=== PATIENT | female | born 1975 | race Caucasian/White ===

== ENCOUNTER 2016-10-16 10:05 | Emergency (ER) | payer OTHER ==
--- NOTE | 2016-10-16 12:16 | ED GENERAL ADULT ---
History of Present Illness General Chief Complaint: Abdominal Pain/Flank Pain Stated Complaint: ABD PAIN VOMITING SINCE Source: patient Exam Limitations: no limitations Vital Signs & Intake/Output Vital Signs & Intake/Output Vital Signs Date Time Temp Pulse Resp B/P B/P Pulse O2 O2 Flow FiO2 Mean Ox Delivery Rate 10/16 1333 98.4 80 18 158/91 100 Room Air 10/16 1053 99 Room Air 10/16 1017 98.2 70 18 143/85 99 Room Air Allergies Coded Allergies: amoxicillin (Severe, RASH, HIVES, +N 09/05/15) Reconcile Medications No Known Home Medications Triage Note: PT C/O LT UPPER ABD PAIN. HAS BEEN USING TUMS AND MYLANTA WITH NO RELIEF. PAIN RADIATES TO HER BACK AND IS HAVING VOMITING. STATES PAIN IS A BURNING PAIN. Triage Nurses Notes Reviewed? yes : No Patient currently breastfeeds: No HPI: 40 y/o female with h/o asthma and GERD presenting with burning epigastric pain radiating to the back for 3 days. Worse with eating. Takes prilosec and mylanta which she reports med compliance with. Endorses N/V, with last emesis at 3 am this morning. Reports loose stools, but no diarrhea, melena, or bloody stools. Denies fevers. Denies ETOH use, smoking, spicy foods, or NSAID use. Past History Travel History Traveled to [place] past 21 day No Medical History Any Pertinent Medical History? see below for history Neurological: NONE EENT: NONE Cardiovascular: NONE Respiratory: asthma Gastrointestinal: NONE Hepatic: NONE Renal: NONE Musculoskeletal: NONE Psychiatric: NONE Endocrine: NONE Blood Disorders: NONE Cancer(s): NONE CONSERVATION SCIENTIST/Reproductive: NONE Surgical History Surgical History: tubal ligation Psychosocial History What is your primary language Persian Tobacco Use: Never used Family History Hx Contributory? No Review of Systems Review of Systems Constitutional: Reports: no symptoms. Respiratory: Reports: no symptoms. Cardiovascular: Reports: no symptoms. GI: Reports: abdominal pain, nausea, vomiting. Denies: constipation, diarrhea, distention, bloody stool. Genitourinary: Reports: no symptoms. Musculoskeletal: Reports: no symptoms. Skin: Reports: no symptoms. Neurological/Psychological: Reports: no symptoms. Physical Exam Physical Exam General Appearance: well developed/nourished, no apparent distress, alert, awake , comfortable Head: atraumatic Respiratory: normal breath sounds, lungs clear Cardiovascular: regular rate/rhythm Gastrointestinal: normal bowel sounds, soft, abdomen is tender to palpation in the epigastrium and right upper quadrant, negative Alaniz sign, no rebound or guarding Neurologic/Psych: awake, alert, oriented x 3, normal mood/affect Core Measures ACS in differential dx? No CVA/TIA Diagnosis: No Severe Sepsis Present: No Septic Shock Present: No Progress Differential Diagnoses I considered the following diagnoses in my evaluation of the patient: [ Cholecystitis versus cholelithiasis versus choledocholithiasis versus cholangitis versus pancreatitis versus gastritis versus peptic ulcer disease] Plan of Care: Orders Procedure Date/time Status LIPASE 10/16 1215 Complete COMPREHENSIVE METABOLIC PANEL 10/16 1215 Complete CBC WITHOUT DIFFERENTIAL 10/16 1215 Complete EKG 10/16 1040 Active Laboratory Tests 10/16/16 1242: Anion Gap 11, Estimated GFR > 60, BUN/Creatinine Ratio 13.8, Glucose 82, Calcium 9.3, Total Bilirubin 2.7 H, AST 276 H, ALT 185 H, Alkaline Phosphatase 173 H , Total Protein 7.7, Albumin 4.2, Globulin 3.5, Albumin/Globulin Ratio 1.2, Lipase 81, CBC w Diff NO MAN DIFF REQ, RBC 4.79, MCV 87.0, MCH 28.3, RDW 13.2, MPV 9.8, Gran % 73.5, Lymphocytes % 16.5 L, Monocytes % 6.7, Eosinophils % 2.9, Basophils % 0.4, Absolute Granulocytes 6.0, Absolute Lymphocytes 1.4, Absolute Monocytes 0.6, Absolute Eosinophils 0.2, Absolute Basophils 0, PUBS MCHC 32.6 L White blood cell count within normal limits. Alkaline phosphatase, bilirubin, chains and the nieces elevated, suspect cholelithiasis but low concern for cholecystitis as patient has been afebrile with normal white count. Right upper quadrant ultrasound is pending, patient requesting to be discharged as she has her son's graduation alliance party at 2:30. Spoke with attending and will allow patient to leave and call her with the ultrasound results as she has been afebrile with normal white count and nontoxic appearing. 3:00pm Patient called with ultrasound results and informed that ultrasound does show multiple gallstones with cholecystitis. Instructed that she needs to return to the ED immediately for surgical evaluation. Patient instructed to remain nothing by mouth from here on forward. (ANIRUDH SETH,DALE) Initial ED EKG: none Departure Departure Disposition: HOME OR SELF CARE Condition: Stable Clinical Impression Primary Impression: RUQ pain Secondary Impressions: Epigastric pain Referrals: ADDISON MARS,DIAZ Hawk (PCP/Family) Additional Instructions: He will receive a phone call later on today with the results of your ultrasound. He understands that if he were ultrasound shows any emergent process that he will need to come back to the emergency department immediately for evaluation. Please follow-up with your primary care provider in the next 24 hours for reevaluation. Return to the ED sooner for any worsening symptoms. Departure Forms: Customer Survey General Discharge Information Prescriptions: Current Visit Scripts No Known Home Medications Critical Care Note Critical Care Note Critical Care Time: non-applicable
[2016-10-16 13:01] LABS: ABSOLUTE BASOPHIL COUNT 0 /CUMM (0.0-0.2); ABSOLUTE EOSINOPHIL COUNT 0.2 /CUMM (0.0-0.7); ABSOLUTE LYMPH COUNT 1.4 /CUMM (1.2-3.4); ABSOLUTE MONOCYTE COUNT 0.6 /CUMM (0.10-0.60); BASOPHIL % 0.4 % (0.0-2.0); EOSINOPHIL % 2.9 % (0-5); GRANULOCYTE % 73.5 % (42.2-75.2); HEMATOCRIT 41.7 % (37-47); MEAN CORPUSCULAR HGB 28.3 PG (27.0-31.0); MEAN CORPUSCULAR HGB CONC 32.6 G/DL (33.0-37.0); MEAN PLATELET VOLUME 9.8 FL (7.4-10.4); PLATELET COUNT 301 /CUMM (130-400); RBC DISTRIBUTION WIDTH 13.2 % (11.5-14.5); RED BLOOD CELL CT 4.79 /CUMM (4.20-5.40); WHITE BLOOD CELL COUNT 8.2 /CUMM (4.8-10.8)
[2016-10-16 13:33] VITALS: BP 158/91
--- NOTE | 2016-10-16 13:43 | ULTRASOUND REPORT ---
EXAMINATION: US ABDOMEN LIMITED CLINICAL INFORMATION: Right upper quadrant pain. Presumptive diagnosis of cholecystitis. COMPARISON: None TECHNIQUE: Real-time imaging of the right upper quadrant abdominal viscera. FINDINGS: PANCREAS: Normal. LIVER: Normal. The liver demonstrates normal size, contour and echogenicity. No focal lesion or intrahepatic biliary duct dilatation. GALLBLADDER: There are multiple echogenic shadowing foci seen within the gallbladder, consistent with gallstones. Mild gallbladder wall thickening is seen, measuring up to 0.4 cm in thickness. No pericholecystic fluid is seen. No sonographic Alaniz sign is elicited while scanning over the gallbladder. COMMON BILE DUCT: Normal in caliber measuring 0.3 cm in diameter. RIGHT KIDNEY: Normal. No hydronephrosis. No renal calculi or focal parenchymal lesions. The kidney measures 9.8 cm in maximum dimension. FREE FLUID: None. IMPRESSION: 1. Multiple calcified gallstones with diffuse gallbladder wall thickening. In the clinical setting provided, findings are suspicious for acute cholecystitis. 2. No evidence of biliary obstruction. 3. Otherwise unremarkable right upper quadrant ultrasound.
[2016-10-16] MEDS ORDERED: SEASONIQUE 0.11 EACH PO (20:49)
[2016-10-17] MEDS ORDERED: PERCOCET 5-3251 EACH PO (00:52)
== END 2016-10-16 13:54 ==
LOC: ERH 10:05
PROVIDERS: Physician Assistant
DX: R10.11 Right upper quadrant pain (principal); R10.13 Epigastric pain
CPT/HCPCS: 93005; 93010

== ENCOUNTER 2016-10-16 19:04 | Observation (INO) | payer OTHER ==
[~2016-10-16] VITALS: Ht 160 cm; Wt 76.2 kg
--- NOTE | 2016-10-16 19:11 | NUR ---
PER PT SEEN EARLIER FOR GALL BLADDER TOLD TO COME BACK./ HAD LABS AND SURG CONSULT
--- NOTE | 2016-10-16 19:31 | ED GI/GU/ABDOMINAL COMPLAINT ---
History of Present Illness General Chief Complaint: Abdominal Pain/Flank Pain Stated Complaint: ABD PAIN SEEN TODAY Source: patient, old records Exam Limitations: no limitations Vital Signs & Intake/Output Vital Signs & Intake/Output Vital Signs Date Time Temp Pulse Resp B/P B/P Pulse O2 O2 Flow FiO2 Mean Ox Delivery Rate 10/16 2105 97.3 60 16 154/80 100 Room Air 10/16 2054 96 10/16 1913 98.1 76 20 125/87 98 ED Intake and Output 10/17 0000 10/16 1200 Intake Total 1100 Output Total Balance 1100 Intake, IV 1100 Patient 168 lb Weight Allergies Coded Allergies: amoxicillin (Severe, RASH, HIVES, +N 09/05/15) apple (ITCHY MOUTH 10/16/16) banana (ITCHY MOUTH 10/16/16) kiwi (ITCHY MOUTH 10/16/16) Reconcile Medications L-Norgest/E.estradion-E.estrad (Seasonique 0.15-0.03-0.01 Tab) 0.15 MG-30 MCG ( 84)/10 MCG (7) TBDSPK.3MO 1 TAB PO DAILY CONTROL (Reported) Oxycodone HCl/Acetaminophen (Percocet 5-325 MG Tablet) 5 MG-325 MG TABLET 1-2 TAB PO Q4-6 PRN PAIN Triage Note: PER PT SEEN EARLIER FOR GALL BLADDER TOLD TO COME BACK.08/09 HAD LABS AND SURG CONSULT Triage Nurses Notes Reviewed? yes LMP (ages 10-50): unknown ? N Is pt currently ? No Onset: Abrupt Duration: day(s): (3), constant, continues in ED, getting worse Timing: single episode today Quality/Severity: burning, moderate, sharpness Severity Numbers: 7 Location: epigastric Radiation: back Activities at Onset: none Prior Abdominal Problems: none Past Sexual History: Unobtainable at this time Sexually Active: Yes No Modifying Factors: none Modifying Factors: Worsens With: eating, movement, palpation. Associated Symptoms: abdominal pain, heartburn, nausea/vomiting HPI: 40-year-old female with history of asthma presents for evaluation after being seen earlier and found to have cholelithiasis suspicions for acute cholecystitis. Patient seen in ED earlier today and was initially discharged home before ultrasound results were back because she wanted to go to a graduation constitution party. Patient was called and told to return to emergency department after ultrasound showed signs of possible acute cholecystitis. Patient when she 's been having epigastric abdominal pain and radiates to her back for the past 3 days. He reports symptoms feel like heartburn but has not been improving with antacids. Pain is worse with eating and touching the affected areas. Pain is currently a 7 out of 10. There are no alleviating factors. She is had previous C-sections and tummy tuck but no other abdominal surgeries. No other associated symptoms. (TANA REED PA-C) Past History Travel History Traveled to [place] past 21 day No Medical History Any Pertinent Medical History? see below for history Neurological: NONE EENT: NONE Cardiovascular: NONE Respiratory: asthma Gastrointestinal: NONE Hepatic: NONE Renal: NONE Musculoskeletal: NONE Psychiatric: NONE Endocrine: NONE Blood Disorders: NONE Cancer(s): NONE CLIENT MANAGER LARGE LAW/Reproductive: NONE Surgical History Surgical History: tubal ligation Psychosocial History What is your primary language [place] Tobacco Use: Never used Family History Hx Contributory? No (TANA REED PA-C) Review of Systems Review of Systems Constitutional: Reports: no symptoms. EENTM: Reports: no symptoms. Respiratory: Reports: no symptoms. Cardiovascular: Reports: no symptoms. GI: Reports: see HPI, abdominal pain, nausea. Genitourinary: Reports: no symptoms. Musculoskeletal: Reports: no symptoms. Skin: Reports: no symptoms. Neurological/Psychological: Reports: no symptoms. Hematologic/Endocrine: Reports: no symptoms. Immunologic/Allergic: Reports: no symptoms. All Other Systems: Reviewed and Negative (TANA REED PA-C) Physical Exam Physical Exam General Appearance: well developed/nourished, no apparent distress, alert, awake , mild distress Head: atraumatic, normal appearance Eyes: Bilateral: normal appearance, PERRL, EOMI, normal inspection. Ears, Nose, Throat, Mouth: hearing grossly normal Neck: normal inspection, supple, full range of motion Respiratory: normal breath sounds, chest non-tender, no respiratory distress Cardiovascular: regular rate/rhythm, normal peripheral pulses Peripheral Pulses: 2+ dorsalis pedis (R), 2+ dorsalis pedis (L) Gastrointestinal: normal bowel sounds, soft, no organomegaly, tenderness ( epigastric) Back: normal inspection, normal range of motion, no vertebral tenderness Extremities: normal range of motion Neurologic/Psych: no motor/sensory deficits, awake, alert, oriented x 3, normal gait Skin: intact, normal color, warm/dry Core Measures ACS in differential dx? No Severe Sepsis Present: No Septic Shock Present: No (BRIANNA SETH,TANA) Progress Differential Diagnosis: appendicitis, biliary colic, bowel obstruction, cholecystitis, diverticulitis, ectopic , gastritis, pancreatitis, peptic ulcer, PUD/GERD, SBO, UTI/pyelo Plan of Care: Orders Procedure Date/time Status Regular Diet 10/17 B Active HEPATIC FUNCTION PANEL 10/17 599 Active CBC WITHOUT DIFFERENTIAL 10/17 599 Active BASIC ELECTROLYTES PLUS BUN&CR 10/17 599 Active PATHOLOGY SPECIMEN 10/17 0108 Active Pathway - chart 10/[address] in observation 10/18 47 Active Patient Data 10/18 47 Active Code Status 10/17 004 Active Wound Care/Dressing 10/17 UNK Active VTE Mechanical Prophylaxis 10/17 UNK Active Vital Signs 10/17 UNK Active Intake & Output 10/17 UNK Active Activity/Ambulation 10/17 UNK Active Add-on Test (ER Only) 10/16 2113 Active FingerStick- Glucose 10/17 2107 Active Add-on Test (ER Only) 10/16 2032 Active HUMAN BETA HCG SCREEN 10/17 2023 Complete PARTIAL THROMBOPLASTIN TIME 10/16 2022 Complete PROTHROMBIN TIME 10/16 2022 Complete TYPE & SCREEN (NOT X-MATCH) 10/16 2019 Complete Current Medications Sig/Royal Start time Last Medication Dose Stop Time Status Admin Heparin Sodium 5,000 UNIT Q8 10/17 06 AC (Porcine) Acetaminophen 650 MG Q6P PRN 10/175 AC (Tylenol) Dextrose/Sodium 1,000 ML .[id number] 10/17 0045 AC 10/17 Chloride 0100 (D5W-1/2 Normal Saline 1000ML) Morphine Sulfate 2 MG Q2P PRN 10/17 0045 AC 10/17 (Morphine) 0107 Morphine Sulfate 4 MG Q2P PRN 10/17 004 AC (Morphine) Ondansetron HCl 4 MG Q6P PRN 10/17 004 AC (Zofran) Oxycodone/ 1 TAB Q4P PRN 10/17 004 AC Acetaminophen (Percocet) Oxycodone/ 2 TAB Q4P PRN 10/17 44 AC Acetaminophen (Percocet) Promethazine HCl 12.5 MG Q6P PRN 10/17 0045 AC (Phenergen) 10/24 0044 Metronidazole 500 MG ONCE ONE 10/16 2099 CAN (Flagyl) 10/16 2158 N/A 1 UNIT (No Carrier) Laboratory Tests 10/16/162032: PT Cancelled, INR Cancelled, APTT Cancelled 10/16/162023: Total Beta HCG NEGATIVE 10/16/162022: PT 11.4, INR 1.09, APTT 30 Patient seen and evaluated. She was given IV Tylenol and a liter of IV fluids. Surgery was paged at 8 PM. Waiting to hear back from surgeon with the plan will be 8:24 PM: Spoke with Dr. Travis regarding the situation. Based on patient's blood work and the ultrasound he does not feel as though emergent surgery is necessary. He said that if the patient wants to stay for surgery tonight that he will do tonight or patient follow-up as an outpatient have surgery done over the next 3 days. Discussed situation with patient and she is electing to stay for surgery tonight. PT/INR and PTT ordered. Surgical PA paged. Patient was also given a DuoNeb due to reported wheezing. Lungs are clear bilaterally before and after DuoNeb. Patient taken to the OR from the emergency department. (TANA REED PA-C) Initial ED EKG: none (TANA REED PA-C) Departure Departure Disposition: STILL A PATIENT Condition: Stable Clinical Impression Primary Impression: Cholecystitis Referrals: ADDISON MARS,DIAZ Hawk (PCP/Family) Departure Forms: Customer Survey General Discharge Information Prescriptions: Current Visit Scripts Oxycodone HCl/Acetaminophen (Percocet 5-325 MG Tablet) 1-2 TAB PO Q4-6 PRN PAIN #36 TAB OR/GI Note Spoke With: SRIRAM MONTEJO DO ED Treatment Decision: TABITHA MAHMOOD requires urgent operative management or an emergent procedure that cannot be performed in the Emergency Room setting. Patient will go to the OR from the emergency department for a cholecystectomy for treatment of acute cholecystitis and cholelithiasis. Transport To: [facility] (TANA REED PA-C) PA/AGER OPERATOR Co-Sign Statement Statement: ED Attending supervision documentation- x I saw and evaluated the patient. I have also reviewed all the pertinent lab results and diagnostic results. I agree with the findings and the plan of care as documented in the PA's/AGER OPERATOR's documentation. [] I have reviewed the ED Record and agree with the PA's/AGER OPERATOR's documentation. [] Additions or exceptions (if any) to the PAs/AGER OPERATOR's note and plan are summarized below: [] (MATTHEW MARS,MER)
--- NOTE | 2016-10-16 20:31 | NUR ---
PT TO ROOM 4, SEEN BY BASHIR REED. IV EST, IVF AND OFIRMEV INFUSING. TYPE AND SCREEN SENT WITH EXTRA SST/LAV/BLUE/RAYMUNDO. PT AWARE TO REMAIN NPO, LAST PO INTAKE A FEW NOODLES AT 1500. SURGICAL PA AT BEDSIDE.
[2016-10-16 20:49] LABS: PT 11.4 SEC (9.4-12.5); PTT 30 SEC (25-37)
[2016-10-16] MEDS ORDERED: SEASONIQUE 0.11 EACH PO (20:49)
--- NOTE | 2016-10-16 21:08 | NUR ---
NEB TX COMPLETE FOR PT C/O ASTHMA SYMPTOMS. PAIN TOLERABLE, DENIES NAUSEA CURRENTLY. IVF COMPLETE. AWARE OF POC FOR SURGERY; AWARE 1 OTHER PT TO GO FIRST AND THAT PT HAS JUST GONE NOW. PT WILL REMOVE JEWELRY AND GIVE VALUABLES TO HER MOTHER PRIOR TO OR.
--- NOTE | 2016-10-16 21:22 | NUR ---
LAB REQUESTING ABORH TUBE
--- NOTE | 2016-10-16 22:03 | NUR ---
OR NOW CALLED STATING TRANSPORT WILL ARRIVE IN 15MIN. PT TO BATHROOM, CHANGED INTO GOWN AND COMPLETING SCRUB. PT AND MOM AWARE OF POC; MOM TO TAKE BELONGINGS.
--- NOTE | 2016-10-16 22:34 | NUR ---
PT TRANSPORTED TO FLOOR
--- NOTE | 2016-10-16 23:01 | History & Physical Pre-Op ---
General Information and HPI MD Statement: I have seen and personally examined TABITHA MAHMOOD and documented this H&P. The patient is a 40 year old F who presented with a patient stated chief complaint of []. Source of Information: patient Exam Limitations: no limitations History of Present Illness: 40 year old female with abdominal pain for 3 days. Got more severe last night. Was seen in the ED earlier today and was sent home. Was called back d/t US finding of cholelithiasis with possible cholecystitis. Currently patient with some epigastric discomfort but has been afraid to eat. Allergies/Medications Allergies: Coded Allergies: amoxicillin (Severe, RASH, HIVES, +N 09/05/15) apple (ITCHY MOUTH 10/16/16) banana (ITCHY MOUTH 10/16/16) kiwi (ITCHY MOUTH 10/16/16) Home Med list L-Norgest/E.estradion-E.estrad (Seasonique 0.15-0.03-0.01 Tab) 0.15 MG-30 MCG ( 84)/10 MCG (7) TBDSPK.3MO 1 TAB PO DAILY CONTROL (Reported) Past History Medical History Neurological: NONE EENT: NONE Cardiovascular: NONE Respiratory: asthma Gastrointestinal: NONE Hepatic: NONE Renal: NONE Musculoskeletal: NONE Psychiatric: NONE Endocrine: NONE Blood Disorders: NONE Cancer(s): NONE CORPORATE EXECUTIVE/Reproductive: NONE Surgical History Pertinent Surgical History: , tubal ligation, Abdominoplasty Past Family/Social History Psychosocial History Primary Language: Swiss Smoking Status: Never Smoked ETOH Use: occasional use Illicit Drug Use: denies illicit drug use Review of Systems Review of Systems: All negative aside for the above mentioned peritnent positives. Exam & Diagnostic Data Last 24 Hrs of Vital Signs/I&O Vital Signs Date Time Temp Pulse Resp B/P B/P Pulse O2 O2 Flow FiO2 Mean Ox Delivery Rate 10/16 2105 97.3 60 16 154/80 100 Room Air 10/16 2054 96 10/16 1913 98.1 76 20 125/87 98 Physical Exam General Appearance Alert, Oriented X3, No Acute Distress Skin No Significant Lesion Neck Supple, No JVD Cardiovascular Regular Rate, Normal S1, Normal S2 Lungs Clear to Auscultation Abdomen Soft (epigastric tenderness) Neurological Normal Gait, Normal Speech, Cranial Nerves 3-12 NL Extremities No Edema, No Tenderness/Swelling Last 24 Hrs of Labs/Carlos: Laboratory Tests 10/16/162032: PT Cancelled, INR Cancelled, APTT Cancelled 10/16/162023: Total Beta HCG NEGATIVE 10/16/162022: PT 11.4, INR 1.09, APTT 30 Diagnostic Data Other Results Abd US-cholelithiasis with possible cholecystitis Assessment/Plan Assessment/Plan: Acute Cholecystitis -NPO -IVF -Plan for Lap Kamini tonight As Ranked By This Provider Problem List: 1. Epigastric pain 2. RUQ pain Attending MD Review Statement Attending Statement Attending MD Statement: examined this patient, discuss w/resident/PA/CERTIFIED RETINAL ANGIOGRAPHER, agreed w/resident/PA/CERTIFIED RETINAL ANGIOGRAPHER, discussed with family, reviewed EMR data (avail), reviewed images
--- NOTE | 2016-10-17 00:39 | Operative Report ---
Operative/Inv Procedure Report Surgery Date: 10/17/16 Name of Procedure: Laparoscopic Cholecystectomy Pre-Operative Diagnosis: Cholelithiasis/Cholecystitis Post-Operative Diagnosis: Same Estimated Blood Loss: less than 50ml Surgeon/Tipping Machine Operator Automatic: SRIRAM FUNG APRN Anesthesia: general endotracheal tube IV Fluids: 1700 cc Drains: None Specimens: Gallbladder Complications: None Condition: Stable Operative Indication: This is a 40-year-old female that presented to the emergency room with abdominal pain. After appropriate workup was completed the patient was diagnosed with acute cholecystitis. A laparoscopic cholecystectomy was discussed in detail. All risks including but not limited to bleeding, infection, bile leak, and injury to surrounding ducts/bowel were discussed in detail. The patient understood everything and decided to proceed. Operative/Procedure Note Note: The patient was brought to the operating room and placed on the operating room table in supine position. Venodyne stockings were placed and adequate general endotracheal anesthesia was obtained. The patient was prepped and draped in standard surgical fashion. We began the procedure by making a 2 cm transverse incision in the infraumbilical crease. The incision was carried down to the fascia, once the fascia was clearly visualized it was picked up between 2 sarah clamps. The fascia was divided in the midline and once we entered the peritoneum 2 stay 0 Vicryl sutures were placed on each side. A 12 mm blunt port was inserted and the abdominal cavity was insufflated to 15 mmHg. A 10 mm 30 laparoscope was introduced and upon initial examination no obvious gross pathology was seen. We did note a mildly distended gallbladder in the right upper quadrant. Accessory trocars were placed, all 5 mm, one in the epigastrium and 2 in the right upper quadrant (one in the midclavicular line and one in the anterior axillary line, both 2 fingerbreadths below the costal margin). The gallbladder was grasped with the lateralmost trocar and retracted up over the liver. Using the other 2 accessory trochars the infundibulum was grasped and the peritoneum was lysed using blunt dissection and using hook electrocautery. The cystic duct and cystic artery were visualized. The common bile duct was visualized and it was away from our area of dissection. The cystic duct and artery were skeletonized and divided between clips, 3 clips to stay and one clip on the gallbladder side for the duct and 2 clips to stay and one clip on the gallbladder side for the artery. The gallbladder was dissected off the liver bed using hook electrocautery maintaining hemostasis. Prior to completely removing the gallbladder off the liver bed we examined the area of dissection no obvious bile leak or bleeding was noted, the clips appeared to be in good position. The gallbladder was completely detached from the liver bed. We switched to a 5 mm laparoscope and a 10 mm Endobag was introduced through the umbilical trocar site. The gallbladder was placed in the bag and removed through the umbilicus. The abdomen was reinsufflated. We switched back to a 10 mm laparoscope and examined our area of dissection. No obvious bile leak or bleeding was noted. The right upper quadrant was irrigated until clear. All ports were removed under direct visualization, no obvious bleeding was noted. The umbilical trocar site was closed using 0 Vicryl suture. The skin was closed using 4-0 Monocryl. Steri-Strips and dressings were placed. The patient was successfully extubated and transferred to the recovery room in stable condition. The patient tolerated the procedure well with no complications. Findings: Distended gallbladder, multiple stones, + wall edema CC: ADDISON MARS,DIAZ Hawk
--- NOTE | 2016-10-17 00:50 | Admission Core Measures ---
Admission Lab Results I reviewed the following labs: Laboratory Tests 10/16 Chemistry Total Beta HCG (NEGATIVE) NEGATIVE Coagulation PT (9.4 - 12.5 SEC) Cancelled 11.4 INR (0.90 - 1.19) Cancelled 1.09 APTT (25 - 37 SEC) Cancelled 30 Admission Meds I reviewed the following Meds: Current Medications Sig/Royal Start time Last Medication Dose Stop Time Status Admin Acetaminophen 650 MG Q6P PRN 10/17 0045 UNVr (Tylenol) Dextrose/Sodium 1,000 ML .[id number] 10/17 004 UNVr Chloride (D5W-1/2 Normal Saline 1000ML) Heparin Sodium 5,000 UNIT Q8 10/17 0600 UNVr (Porcine) Metronidazole 500 MG ONCE ONE 10/16 2099 CAN (Flagyl) 10/16 2158 N/A 1 UNIT (No Carrier) Morphine Sulfate 2 MG Q2P PRN 10/17 0045 UNVr (Morphine) Morphine Sulfate 4 MG Q2P PRN 10/17 0045 UNVr (Morphine) Ondansetron HCl 4 MG Q6P PRN 10/17 0045 UNVr (Zofran) Oxycodone/ 1 TAB Q4P PRN 10/17 004 UNVr Acetaminophen (Percocet) Oxycodone/ 2 TAB Q4P PRN 10/17 0045 UNVr Acetaminophen (Percocet) Promethazine HCl 12.5 MG Q6P PRN 10/17 0045 UNVr (Phenergen) 10/24 004 Acute Coronary Syndrome Inclusion Criteria ACS Diagnosis No Inpatient Core Measures LDL Reminder: If No, please order W/I first 24hr of stay Congestive Heart Failure Inclusion Criteria CHF Diagnosis No Cerebrovascular accident Inclusion Criteria CVA/TIA Diagnosis No Inpatient Core Measures Bedside Swallow Eval Reminder: If BSE failed, place ST order Antithrombotic Reminder: Order Antithrombotic Medication by end of day 2 Antithrombotic Reminder: Document Reason Antithrombotic Not ordered by end of day 2 AFIB/Flutter Reminder: If Present, add to problem list AFIB/Flutter Reminder: Order Anticoag Medication for pts with AFIB/Flutter Atherosclerosis Reminder: If Present, add to problem list LDL Reminder: If No, please order W/I first 24hr of stay PT Order Reminder: If No, please order Venous thromboembolism Inpatient Core Measures VTE Risk Factors: Age > 40, Surgery No Mech VTE prophylaxis d/t No contraindications No VTE Pharm Prophylaxis d/t No contraindications Inclusion Criteria - Per Current guidelines, there needs to be overlap - treatment for the first 5 days of Warfarin therapy. - Parenteral Anticoagulation (IV or SC) needs to be - given along with Warfarin therapy. VTE Diagnosis No VTE Type NONE VTE Confirmed by (Test) NONE Problem List As ranked by this Provider includes Assessment & Plan 1. Epigastric pain 2. RUQ pain 3. Acute cholecystitis HOME MEDS Home Med List L-Norgest/E.estradion-E.estrad (Seasonique 0.15-0.03-0.01 Tab) 0.15 MG-30 MCG ( 84)/10 MCG (7) TBDSPK.3MO 1 TAB PO DAILY CONTROL (Reported)
[2016-10-17] MEDS ORDERED: PERCOCET 5-3251 EACH PO (00:52)
--- NOTE | 2016-10-17 00:55 | Patient Discharge Instructions ---
Discharge Instructions General Discharge Information You were seen/treated for: Acute cholecystitis You had these procedures: Laparoscopic cholecystectomy Watch for these problems: Increasing pain despite the use of pain medication. Increasing redness, warmth or swelling. Drainage from incisions. Fever greater than 101.5 degrees. Persistent nausea and vomitting. Inability to pass gas or move bowels. Do not soak the wound: Yes No bath, but you may shower: Yes Other wound care: Keep wounds clean and dry, allow steri strips to fall off, do not peel them off. It may take several days. Your sutures will dissolve. Special Instructions: Advance diet as tolerated Diet Continue normal diet: Yes Recommended Diet: Regular Activity Full Activity/No Limits: No Activity Self Limited: Yes Pounds, do NOT lift more than: 10 Acute Coronary Syndrome Inclusion Criteria At DC or during hospital stay patient has or had the following: ACS DIAGNOSIS No Discharge Core Measures Meds if any: Prescribed or Continued at Discharge Meds if any: NOT Prescribed or Continued at Discharge Congestive Heart Failure Inclusion Criteria At DC or during hospital stay patient has or had the following: CHF DIAGNOSIS No Discharge Core Measures Meds if any: Prescribed or Continued at Discharge Meds if any: NOT Prescribed or Continued at Discharge Cerebrovascular accident Inclusion Criteria At DC or during hospital stay patient has or had the following: CVA/TIA Diagnosis No Discharge Core Measures Meds if any: Prescribed or Continued at Discharge Meds if any: NOT Prescribed or Continued at Discharge Venous thromboembolism Inclusion Criteria VTE Diagnosis No VTE Type NONE VTE Confirmed by (Test) NONE Discharge Core Measures - Per Current guidelines, there needs to be overlap - treatment for the first 5 days of Warfarin therapy. - If discharged on Warfarin prior to 5 days of - overlap therapy, the patient will need to be - assessed for post discharge needs including - *Post discharge parental anticoagulation - *Warfarin and/or parental anticoagulation education - *Follow up date to check INR post discharge At least 5 days overlap therapy as Inpatient No Meds if any: Prescribed or Continued at Discharge Note: Overlap Therapy is Warfarin and Anticoagulant Meds if any: NOT Prescribed or Continued at Discharge
--- NOTE | 2016-10-17 01:14 | Surgical Discharge Summary ---
Visit Information Visit Dates Admission Date: 10/17/16 Discharge Date: 10/17/16 History of Present Illness Chief Complaint: Abdominal pain secondary to acute cholecystitis Medical History Neurological: NONE EENT: NONE Cardiovascular: NONE Respiratory: asthma Gastrointestinal: NONE Hepatic: NONE Renal: NONE Musculoskeletal: NONE Psychiatric: NONE Endocrine: NONE Blood Disorders: NONE Cancer(s): NONE STEAM FITTER/Reproductive: NONE Surgical History Pertinent Surgical History: , tubal ligation, Abdominoplasty Psychosocial History What is Your Primary Language? [place] ETOH Use: occasional use Review of Systems: see H&P Hospital Course Course Attending Physician: SRIRAM CHARLES DO Primary Care Physician: ADDISON MARS,DIAZ [facility] Course: Soco presented to the emergency department with complaints of abdominal pain. It was determined that she had acute cholecystitis based on imaging obtained during her visit and she was brought to the operating theatre for a laparoscopic cholecystectomy. She tolerated the procedure well and was placed in an observation status in the post operative period due to the need for monitoring of oxygenation and iv pain medication administration. Her diet was advanced and tolerated and she voided spontaneously. At the time of hospital discharge, her vital signs were stable and within normal limits and her pain was controlled with oral pain medication. Allergies: Coded Allergies: amoxicillin (Severe, RASH, HIVES, +N 09/05/15) apple (ITCHY MOUTH 10/16/16) banana (ITCHY MOUTH 10/16/16) kiwi (ITCHY MOUTH 10/16/16) Disposition Summary Disposition Principal Diagnosis: Acute cholecystitis Additional Diagnosis: none Discharge Disposition: home or self care Discharge Instructions General Discharge Information Code Status: Full Code Patient's Diet: Regular, advance as tolerated Patient's Activity: As tolerated, avoid heavy lifting Follow-Up Instructions/Appts: Follow up with Dr. Charles in 2 weeks Medications at Discharge Discharge Medications: Continue taking these medications: L-Norgest/E.estradion-E.estrad (Seasonique 0.15-0.03-0.01 Tab) 0.15 MG-30 MCG ( 84)/10 MCG (7) TBDSPK.3MO 1 Tablet ORAL DAILY Qty = 91 Start taking the following new medications: Oxycodone HCl/Acetaminophen (Percocet 5-325 MG Tablet) 5 MG-325 MG TABLET 1-2 Tablet ORAL EVERY 4-6 HOURS as needed for PAIN Qty = 36 No Refills
[2016-10-17 02:20] VITALS: BP 130/80
--- NOTE | 2016-10-17 06:03 | PN- General Surgery ---
Subjective Subjective: No acute post operative events reported. Patient is s/p lap nia for acute cholecystitis. Acknowledges some diffuse abdominal discomfort and bloating. Denies chest pain, shortness of breath and difficulty breathing. Acknowledges dry mouth. Denies nausea and vomiting. Has voided but states difficulty initiating as well as interrupted urination. Objective Vital Signs and I&Os Vital Signs Date Time Temp Pulse Resp B/P B/P Pulse O2 O2 Flow FiO2 Mean Ox Delivery Rate 10/17 0220 97.6 73 18 130/80 96 10/16 2106 97.3 60 16 154/80 100 Room Air 10/16 2054 96 10/16 1913 98.1 76 20 125/87 98 Intake & Output 10/17 0800 10/17 0000 10/16 1600 10/16 0800 10/16 0000 10/15 1600 Intake Total 1100 Output Total Balance 1100 Intake, IV 1100 Patient 168 lb 168 lb Weight Physical Exam: General: Alert and oriented x3, no acute distress Cards: RRR, s1s2 Pulm: CTA bilaterally ABD: Softly distended, lenka-incisional tenderness, dressings dry and intact Extremities: Moves all extremities, distal sensation intact, skin warm and dry, bilateral calves soft and non-tender with palpation. Assessment/Plan Assessment/Plan This is a 40 year old female with a pmh of asthma who underwent laparoscopic cholecystectomy overnight and was placed in 23 hour obs for post operative monitoring of oxygenation as well as pain management. -Continue to assess abdominal distension following po intake this am -Ambulate, await flatus -Continue iv fluids for now, pt states she feels she needs to try voiding again, monitor output -Percocet for pain -Anticipate dc to home later this am if tolerates diet -Will d/w Dr. Charles Core Measures/Miscellaneous Venous Thromboembolism VTE Risk Factors: Age > 40, Surgery VTE Contraindications: No Contraindications VTE Diagnosis: No VTE Type: NONE VTE Confirmed by (Test): NONE Beta Louie Is Beta Louie a Home Med? No Antibiotics Is Patient on Antibiotics? No
[2016-10-17 06:25] VITALS: BP 116/78
--- NOTE | 2016-10-17 08:29 | PN- General Surgery ---
Subjective Subjective: Pt feels a little better this morning. She still c/o dry mouth/throat. She admits to some soreness, as expected, but reports reasonable relief. She has voided small amounts, several times. No flatus or BM yet. She has ambulated minimally. Eating breakfast now. Otherwise denies DOTY, dizziness, CP, SOB, nausea or vomiting. Objective Vital Signs and I&Os Vital Signs Date Time Temp Pulse Resp B/P B/P Pulse O2 O2 Flow FiO2 Mean Ox Delivery Rate 10/17 624 97.9 72 16 116/78 97 Room Air 10/17 0220 97.6 73 18 130/80 96 10/16 2106 97.3 60 16 154/80 100 Room Air 10/16 2055 96 10/16 1913 98.1 76 20 125/87 98 Intake & Output 10/17 1600 10/17 0800 10/17 0000 10/16 1600 10/16 0800 10/16 0000 Intake Total 1100 Output Total Balance 1100 Intake, IV 1100 Patient 168 lb 168 lb Weight Physical Exam: Gen: Pt is awake and alert. NAD. Cardiac: regular Pulmonary: cta bilaterally. Abdomen: Soft, moderately distended. Dressings are c/d/i. Mild lenka-incisional tenderness is noted. +BS. Assessment/Plan Assessment/Plan Pt is a 40 yo F who is now POD #0 s/p lap nia. She continues to be distended, but is tolerating po. Plan: -Ok to advance diet as tolerated. -Heplock IV fluids. -Recommend trying some mongolian ice and chloroseptic lozenges for dry mouth. -Pain control with percocet prn. -Encourage ambulation. -SC heparin and alps for DVT ppx. -Plan for discharge in a few hours around lunchtime if po solids are tolerated. Core Measures/Miscellaneous Venous Thromboembolism VTE Risk Factors: Age > 40, Surgery VTE Contraindications: No Contraindications VTE Diagnosis: No VTE Type: NONE VTE Confirmed by (Test): NONE Beta Louie Is Beta Louie a Home Med? No Antibiotics Is Patient on Antibiotics? No
[2016-10-17 08:33] LABS: ABSOLUTE BASOPHIL COUNT 0 /CUMM (0.0-0.2); ABSOLUTE EOSINOPHIL COUNT 0 /CUMM (0.0-0.7); ABSOLUTE GRANULOCYTE CT 7.3 /CUMM (1.4-6.5); ABSOLUTE LYMPH COUNT 0.6 /CUMM (1.2-3.4); ABSOLUTE MONOCYTE COUNT 0 /CUMM (0.10-0.60); BASOPHIL % 0 % (0.0-2.0); EOSINOPHIL % 0 % (0-5); GRANULOCYTE % 92.1 % (42.2-75.2); HEMATOCRIT 37.6 % (37-47); MEAN CORPUSCULAR HGB 28.6 PG (27.0-31.0); MEAN CORPUSCULAR HGB CONC 33.3 G/DL (33.0-37.0); MEAN CORPUSCULAR VOLUME 85.8 FL (81.0-99.0); MEAN PLATELET VOLUME 9.4 FL (7.4-10.4); PLATELET COUNT 282 /CUMM (130-400); RBC DISTRIBUTION WIDTH 13.3 % (11.5-14.5); RED BLOOD CELL CT 4.38 /CUMM (4.20-5.40); WHITE BLOOD CELL COUNT 7.9 /CUMM (4.8-10.8)
== END 2016-10-17 12:45 ==
LOC: ERH 19:04 → CRI 10-17 01:01 → 2NA 10-17 02:17
PROVIDERS: Nurse Practitioner; Physician Assistant Medical; ADMIT Surgery
DX: K81.0 Acute cholecystitis (principal); J45.909 Unspecified asthma, uncomplicated
CPT/HCPCS: 1263; 1395; 82436; 96361; 96372; 96374; 96375; G0378; J0131; J1644; J2250; J2270; J3010; J7042